=== PATIENT | female | born 1955 | race Caucasian/White ===

== ENCOUNTER 2017-05-25 09:28 | Emergency (ER) | payer OTHER ==
--- NOTE | 2017-05-25 11:47 | ED CLINICAL REPORT ---
Clinical Report - Physicians/Mid Levels [facility] [address] [place] [address] 05/25/2017 9:31 Patient: MAHAMED VALDIVIA Time Seen: 0947. Arrived- By private vehicle. Historian- patient. HISTORY OF PRESENT ILLNESS Chief Complaint: Injury to CHEST. Location of injuries- (right chest). The injury occurred 3 days ago. Fell out of bed. Occurred at home. (fell). The patient complains of moderate pain. No neck pain, loss of consciousness or seizure. Not dazed. does not completely recall event. reports headache after the fall. REVIEW OF SYSTEMS No numbness, weakness, hearing loss, depression or difficulty breathing. No nausea, bladder dysfunction or laceration. All systems otherwise negative, except as recorded above. PAST HISTORY See nurses notes. Tetanus immunization status is up-to-date. Medications: Furosemide Oral. Potassium Chloride ER Oral. Ventolin HFA Inhalation. ClonazePAM Oral. Metoprolol Succinate ER Oral. DULoxetine HCl Oral. Atorvastatin Calcium Oral. Dicyclomine HCl Intramuscular. Cyclobenzaprine HCl ER Oral. Pantoprazole Sodium Oral. Hydrochlorothiazide Oral. Ranitidine Acid Electric Meter Repairer Helper Oral. Combivent Respimat Inhalation. Flovent Diskus Inhalation. Zolpidem Tartrate Oral. Gabapentin Oral. Allergies: Codeine. Demerol. Soma. (deep sedation) Tramadol. SOCIAL HISTORY Former smoker. No alcohol use or drug use. No recent travel. Is a local resident. ADDITIONAL NOTES The nursing notes have been reviewed. PHYSICAL EXAM Vital Signs: 05/25/2017 09:37 BP: 112/93. HR: 86. RR: 18. O2 saturation: 94%. Temp: 98.1 F. Oxygen saturation normal. Appearance: Alert. Oriented X3. No acute distress. Head: Head non-tender. No swelling of head. No Gray's sign or raccoon eyes. Eyes: Pupils equal, round and reactive to light. Pupillary exam: Right pupil 3mm, round and reactive to light directly and consensually and with accommodation. Left pupil: 3mm, round and reactive to light directly and consensually and with accommodation. EOM intact. Neck: No decreased ROM or muscle spasm in the neck. No pain with movement of head/neck. Painless ROM. Non-tender. No vertebral tenderness. CVS: Heart sounds normal. Pulses normal. Respiratory: Breath sounds normal. (right lateral chest wall tenderness. no overlying skin changes. no crepitus. skin intact.). Abdomen: No visible injury. Soft and nontender. Bowel sounds normal. Back: No tenderness. ROM normal. Skin: Skin intact. Skin warm and dry. Normal skin color. Normal skin turgor. Extremities: Normal inspection. Pelvis stable. Extremities atraumatic. No lower extremity edema. Neuro: [place] Coma Scale: 15- eyes open spontaneously (4); best verbal response- oriented x 3 (5); best motor response- obeys commands (6). Oriented X 3. No motor deficit. LABS, X-RAYS, AND EKG Sternum / Ribs X-rays: (rib fractures of the sixth and seventh ribs. No other acute osseous have a maladies. No pneumothorax.). Technique: good. The X-rays were independently viewed by me and interpreted contemporaneously by me. PROGRESS AND PROCEDURES Course of Care: The patient is a pleasant 61-year-old female with no pertinent past medical history presenting for a fashion of right-sided rib pain. Patient's pain had occurred after falling. Patient is also having some amnesia in regards to the particulars of the event. Because of this, the patient was ordered a head CT scan as well as chest x-ray. After having a discussion with the patient in regards to the indication for the CT scan of the head, the patient had informed the interventional radiology tech that she had changed her mind and declined the scan. Patient is aware of the risks and benefits of declining the scan. Patient is agreeable to the treatment and plan. Do not feel I can force the patient to undergo invasive diagnostic testing. Patient states that she has had a broken rib on the left and feels similar today. Patient is otherwise agreeable to the treatment and plan. Workup shows fractures of the patient's ribs. No signs of pneumothorax. No other injury pattern noted on patient's examination or on diagnostic testing. Patient continues to be alert and oriented. Patient is in no acute distress on repeat examination. discussed with the patient her workup here in the emergency department including diagnosis, home care, follow-up, and return precautions. All questions have been answered. The patient expressed understanding of these instructions and was agreeable to them. Disposition: Discharged. Condition: good. CLINICAL IMPRESSION 05/25/2017 09:37 BP: 112/93. HR: 86. RR: 18. O2 saturation: 94%. Temp: 98.1 F. Oxygen saturation normal. Multiple right rib fractures (closed acute). INSTRUCTIONS Warnings: GENERAL WARNINGS: Return or contact your physician immediately if your condition worsens or changes unexpectedly, if not improving as expected, or if other problems arise. SPECIFICALLY, return if you develop weakness, numbness, tingling, pain or incontinence. difficulty breathing. Your Current Medications: CONTINUE TAKING THE FOLLOWING MEDICATIONS: Atorvastatin Calcium Oral. ClonazePAM Oral. Combivent Respimat Inhalation. Cyclobenzaprine HCl ER Oral. Dicyclomine HCl Intramuscular. DULoxetine HCl Oral. Flovent Diskus Inhalation. Furosemide Oral. Gabapentin Oral. Hydrochlorothiazide Oral. Metoprolol Succinate ER Oral. Pantoprazole Sodium Oral. Potassium Chloride ER Oral. Ranitidine Acid Electric Meter Repairer Helper Oral. Ventolin HFA Inhalation. Zolpidem Tartrate Oral. Prescription Medications: Percocet 5 mg/325 mg: take 1 tablet orally every 6 hours as needed for pain. Dispense twenty-five (25). No refill. Substitution is permissible. Follow-up: Return to the emergency department as needed. Follow up with your doctor in three days. Reason for referral: recheck today's concerns. Summary of care provided to patient via paper. Screening today revealed the patient's blood pressure to be in the normal range. The patient should follow up with a primary care provider for blood pressure management. Understanding of the discharge instructions verbalized by patient. (Electronically signed by Jose Giles Dr. 05/25/2017 12:14)
--- NOTE | 2017-05-25 11:47 | ED NURSING NOTES ---
Clinical Report - Nurses [facility] [address] [place] [address] 05/25/2017 9:31 Patient: MAHAMED VALDIVIA TRIAGE Triage time 09:38 May 25 2017. Acuity: LEVEL 3. Chief Complaint: FALL OUT OF BED while attempting to get up, onto a wood surface and landed on their back. CRISTHIAN COMA SCORE: Cristh[place] Coma Scale: 15- eyes open spontaneously (4); best verbal response- oriented x 4 (5); best motor response- obeys commands (6). --09:52 Zia Anderson R.N. 09:37 05/25/17. BP: 112/93. HR: 86. RR: 18. O2 saturation: 94%. Temp: 98.1 F. Pain level now 8/10. --09:52 Zia Anderson R.N. Weight: 53.5 kg stated. Height/Length: 62 inches Per Patient. BMI: 21.6. --09:40 Zia Anderson R.N. Medications Gabapentin Oral. --09:42 Zia Anderson R.N. Zolpidem Tartrate Oral. --09:43 Zia Anderson R.N. Flovent Diskus Inhalation. --09:43 Zia Anderson R.N. Combivent Respimat Inhalation. --09:43 Zia Anderson R.N. Ranitidine Acid Technical Publications Writer Oral. --09:43 Zia Anderson R.N. Hydrochlorothiazide Oral. --09:44 Zia Anderson R.N. Pantoprazole Sodium Oral. --09:44 Zia Anderson R.N. Cyclobenzaprine HCl ER Oral. --09:44 Zia Anderson R.N. Dicyclomine HCl Intramuscular. --09:45 Zia Anderson R.N. Atorvastatin Calcium Oral. --09:45 Zia Anderson R.N. DULoxetine HCl Oral. --09:45 Zia Anderson R.N. Metoprolol Succinate ER Oral. --09:46 Zia Anderson R.N. ClonazePAM Oral. --09:46 Zia Anderson R.N. Ventolin HFA Inhalation. --09:46 Zia Anderson R.N. Potassium Chloride ER Oral. --09:46 Zia Anderson R.N. Furosemide Oral. --09:46 Zia Anderson R.N. Allergies Demerol. Soma. (deep sedation) --09:41 Zia Anderson R.N. Codeine. --09:42 Zia Anderson R.N. Tramadol. --09:42 Zia Anderson R.N. History Arrived by private vehicle. Historian: patient. Accompanied by friend. This occurred (3 days ago). Occurred at home. ( Right rib pain). ( Right side rib pain and severe headache.). Treatment FELTER TENNIS BALLS: None. Trauma activation: Pre-hospital notification of patient arrival was not received. PAST MEDICAL HX: Tetanus status: up-to-date. Immunizations: up-to-date. The patient is post-menopausal. SOCIAL HX: Former smoker, end date 2012. No alcohol use or drug use. SELF HARM ASSESSMENT: A self harm assessment was performed. The patient answered "no" to the question "Have you recently felt down, depressed, or hopeless?" and "Do you have thoughts of harming or killing yourself?". FALL RISK ASSESSMENT: Fall risk assessment completed. No fall risk identified. NUTRITIONAL RISK ASSESSMENT: The nutritional risk assessment revealed no deficiencies. FUNCTIONAL ASSESSMENT: Functional assessment: no impairments noted. LEARNING NEEDS ASSESSMENT: The learning needs assessment revealed no barriers. ABUSE ASSESSMENT: Abuse assessment: (yes) The patient was asked "Do you feel safe in your home?". SKIN INTEGRITY ASSESSMENT: Skin integrity risk assessment completed. No skin integrity risk identified. --09:52 Zia Anderson R.N. PROBLEMS: UTI - Urinary Tract Infection. Atrial Fibrillation. Gastroesophageal Reflux Disease. Lifestyle / Substance Problems. COPD - Chronic Obstructive Pulmonary Disease. Immunizations. Lupus. Fibromyalgia. Fall. Headache. Back Pain. Hypertension. Tetanus Status. LNMP - Last Normal Menstrual Period. --09:47 Zia Anderson R.N. ADDITIONAL SURGERIES: Fracture Repair. Shoulder Surgery. Tubal Ligation. --09:47 Zia Anderson R.N. Interventions ID band on patient. --09:52 Zia Anderson R.N. PHYSICAL ASSESSMENT Ambulatory to room. GENERAL / NEURO / PSYCH: Alert. Oriented X 4. Appears in pain. HEENT: Pupils equal, round and reactive to light. Head non-tender. ( Headache). RESPIRATORY: Respirations not labored. Chest nontender. Breath sounds within normal limits. CVS: Normal heart rate and rhythm. Pulses within normal limits. Capillary refill less than 2 seconds. GI / : Abdomen soft and nontender. EXTREMITIES: ( Right rib pain). SKIN: Skin intact. Skin is warm. --09:53 Zia Anderson R.N. NURSING PROGRESS NOTES The initial plan of care for this patient includes an assessment with efforts to address patient positioning, appropriate ambient lighting and comfortable environmental temperature; impairment of the musculoskeletal system. Cold pack applied (right ribs). Patient gowned. Reassurance given. Call light placed in reach. Side rails up x 1. Bed placed in lowest position. Brakes of bed on. --09:53 Zia Anderson R.N. 09:58 05/25/2017 Oxycodone-APAP (Oxycodone-Acetaminophen) PO 10/650 mg Tablets 1 tab given. Allergies verified, confirmed 5 rights and sedative warning given to the patient. --09:58 Zia Anderson R.N. DISPOSITION / DISCHARGE Departure time: 12:00 May 25 2017. Condition at departure: improved and stable. No learning barriers present. Discharge instructions provided and reviewed with the patient. Reviewed medication(s) side effects, precautions and dosing information. Prescription(s) given to the patient. Patient verbalized understanding. Written instructions provided in Monegasque. The patient was discharged by the physician. She was discharged home. She left the Emergency Department ambulatory and via private vehicle. --16:12 Leah Gallardo R.N. 16:09 05/25/17. BP: 134/85. HR: 77. RR: 18. O2 saturation: 95% on room air. Temp: 98.1 F (oral). --16:12 Leah Gallardo R.N. Locked/Released at 05/25/2017 16:13 by Leah Gallardo R.N.
--- NOTE | 2017-05-25 11:47 | ED ORDER SUMMARY ---
..... Patient: MAHAMED VALDIVIA OrderSheet [facility] VisitID: [id number] [address] [place] [address] 61y, F Registration Date/Time: 05/25/2017 ORDER SHEET Weight: 53.5 kg (stated) Allergies: Demerol, Soma, Codeine, Tramadol GENERAL ORDERS: Ice (09:52 05/25/2017 Afshin Martin) (9:56 LWhalen R.N.) CT Head wo Cont Urgent (10:07 05/25/2017 Afshin Martin) (Ack 10:09 KHoerner) (11:00 KHoerner) (Cancelled: patient [id number] Afshin Martin) Ribs Unilat w PA Chest Right Urgent (10:55 05/25/2017 Afshin Martin) (Ack 10:57 KHoerner) (11:00 KHoerner) MEDICATION ORDERS: Oxycodone-APAP PO 5/325 mg (HIGH ALERT MEDICATION, NOW) (09:52 05/25/2017 Afshin Martin) (9:58 LWhalen R.N.) okay per history and direct questioning IV FLUIDS: ORDER SHEET NOTES: [Electronically signed by Jose Giles Dr. (12:14 05/25/2017)] [Electronically signed by Leah Gallardo R.N. (16:13 05/25/2017)] [Electronically locked/signed by Leah Gallardo R.N. (16:13 05/25/2017)]
--- NOTE | 2017-05-25 11:47 | ED ORDER SUMMARY ---
..... Patient: MAHAMED VALDIVIA OrderSheet [facility] VisitID: [id number] [address] [place] [address] 61y, F Registration Date/Time: 05/25/2017 ORDER SHEET Weight: 53.5 kg (stated) Allergies: Demerol, Soma, Codeine, Tramadol GENERAL ORDERS: Ice (09:52 05/25/2017 Afshin Martin) (9:56 LWhalen R.N.) CT Head wo Cont Urgent (10:07 05/25/2017 Afshin Martin) (Ack 10:09 KHoerner) (11:00 KHoerner) (Cancelled: patient [id number] Afshin Martin) Ribs Unilat w PA Chest Right Urgent (10:55 05/25/2017 Afshin Martin) (Ack 10:57 KHoerner) (11:00 KHoerner) MEDICATION ORDERS: Oxycodone-APAP PO 5/325 mg (HIGH ALERT MEDICATION, NOW) (09:52 05/25/2017 Afshin Martin) (9:58 LWhalen R.N.) okay per history and direct questioning IV FLUIDS: ORDER SHEET NOTES: [Electronically signed by Jose Giles Dr. (12:14 05/25/2017)] [Electronically signed by Leah Gallardo R.N. (16:13 05/25/2017)] [Electronically locked/signed by Leah Gallardo R.N. (16:13 05/25/2017)]
--- NOTE | 2017-05-25 12:54 | DIAGNOSTIC IMAGING REPORT ---
PROCEDURE: XR RIBS UNILAT W/PA CHEST-RT INDICATION: TRAUMA/INJURY TECHNIQUE: Two views of the right ribs with single PA view chest. COMPARISON: None. FINDINGS: RIGHT RIBS: Nondisplaced right six lateral rib fracture and mildly displaced right lateral seventh rib fracture. No suspicious rib lesions. CHEST: Normal heart size and central vessels. Pleural thickening laterally in the right lung. No pneumothorax. Plate-like atelectatic changes left lateral lung. Surgical clips in the gallbladder fossa. Left shoulder replacement. IMPRESSION: 1. Right sixth and seventh rib fractures. 2. Right lateral pleural thickening and probable small right effusion. No right pneumothorax. 2. Left atelectasis. 3. Prior left shoulder replacement.
--- NOTE | 2017-05-25 16:13 | ED MAR SUMMARY ---
..... Medication Administration Record [facility] [address] [place] [address] Patient: MAHAMED VALDIVIA Visit ID: [id number] 61y, F Weight: 53.5 kg Height/Length: 62 in BMI: 21.6 ALLERGIES: Tramadol, Codeine, Demerol, Soma Given 09:58 05/25/2017 Zia Anderson R.N. Medication Administered: OXYCODONE-APAP [PO] (OXYCODONE-ACETAMINOPHEN), Dose: 1 tab 10/650 mg Tablets PO. Medication Ordered: Oxycodone-APAP PO 5/325 mg (HIGH ALERT MEDICATION, NOW).
--- NOTE | 2017-05-25 16:13 | ED MED RECONCILIATION SUMMARY ---
Patient: MAHAMED VALDIVIA Medication Reconciliation Report [facility] VisitID: [id number] [place] [address] 61y, F Registration Date/Time: 05/25/2017 Weight: 53.5 kg Height/Length: 62 in. BMI: 21.6 ALLERGIES: Codeine, Demerol, Soma, Tramadol The patient's Home Medications are listed below: CONTINUE TAKING THE FOLLOWING MEDICATIONS: Atorvastatin Calcium Oral ClonazePAM Oral Combivent Respimat Inhalation Cyclobenzaprine HCl ER Oral Dicyclomine HCl Intramuscular DULoxetine HCl Oral Flovent Diskus Inhalation Furosemide Oral Gabapentin Oral Hydrochlorothiazide Oral Metoprolol Succinate ER Oral Pantoprazole Sodium Oral Potassium Chloride ER Oral Ranitidine Acid Head Of Acquisitions Oral Ventolin HFA Inhalation Zolpidem Tartrate Oral The source(s) of the original Home Medication information: Not obtained. The following Medications were given to the patient in the Emergency Department: Oxycodone-APAP [PO] PO 1 tab, administered: 05/25/2017 9:58:00 AM The following Medications were prescribed to the patient: Percocet 5 mg/325 mg: take 1 tablet orally every 6 hours as needed for pain. Dispense twenty-five (25). No refill. Substitution is permissible. -- Jose Giles Dr.
--- NOTE | 2017-05-25 16:13 | ED MED RECONCILIATION SUMMARY ---
Patient: MAHAMED VALDIVIA Medication Reconciliation Report [facility] VisitID: [id number] [place] [address] 61y, F Registration Date/Time: 05/25/2017 Weight: 53.5 kg Height/Length: 62 in. BMI: 21.6 ALLERGIES: Codeine, Demerol, Soma, Tramadol The patient's Home Medications are listed below: CONTINUE TAKING THE FOLLOWING MEDICATIONS: Atorvastatin Calcium Oral ClonazePAM Oral Combivent Respimat Inhalation Cyclobenzaprine HCl ER Oral Dicyclomine HCl Intramuscular DULoxetine HCl Oral Flovent Diskus Inhalation Furosemide Oral Gabapentin Oral Hydrochlorothiazide Oral Metoprolol Succinate ER Oral Pantoprazole Sodium Oral Potassium Chloride ER Oral Ranitidine Acid Strategic Partnership Representative Oral Ventolin HFA Inhalation Zolpidem Tartrate Oral The source(s) of the original Home Medication information: Not obtained. The following Medications were given to the patient in the Emergency Department: Oxycodone-APAP [PO] PO 1 tab, administered: 05/25/2017 9:58:00 AM The following Medications were prescribed to the patient: Percocet 5 mg/325 mg: take 1 tablet orally every 6 hours as needed for pain. Dispense twenty-five (25). No refill. Substitution is permissible. -- Jose Giles Dr.
--- NOTE | 2017-05-25 16:13 | ED DISCHARGE INSTRUCTIONS ---
Patient: MAHAMED VALDIVIA General Instructions [facility] VisitID: [id number] [place] [address] 61y, F Registration Date/Time: 05/25/2017 05/25/2017 09:37 BP: 112/93. HR: 86. RR: 18. O2 saturation: 94%. Temp: 98.1 F. Oxygen saturation normal. Multiple right rib fractures (closed acute). INSTRUCTIONS Warnings: GENERAL WARNINGS: Return or contact your physician immediately if your condition worsens or changes unexpectedly, if not improving as expected, or if other problems arise. SPECIFICALLY, return if you develop weakness, numbness, tingling, pain or incontinence. difficulty breathing. Your Current Medications: CONTINUE TAKING THE FOLLOWING MEDICATIONS: Atorvastatin Calcium Oral. ClonazePAM Oral. Combivent Respimat Inhalation. Cyclobenzaprine HCl ER Oral. Dicyclomine HCl Intramuscular. DULoxetine HCl Oral. Flovent Diskus Inhalation. Furosemide Oral. Gabapentin Oral. Hydrochlorothiazide Oral. Metoprolol Succinate ER Oral. Pantoprazole Sodium Oral. Potassium Chloride ER Oral. Ranitidine Acid Civilian Technician Oral. Ventolin HFA Inhalation. Zolpidem Tartrate Oral. Prescription Medications: Percocet 5 mg/325 mg: take 1 tablet orally every 6 hours as needed for pain. Dispense twenty-five (25). No refill. Substitution is permissible. Follow-up: Return to the emergency department as needed. Follow up with your doctor in three days. Reason for referral: recheck today's concerns. Summary of care provided to patient via paper. Screening today revealed the patient's blood pressure to be in the normal range. The patient should follow up with a primary care provider for blood pressure management. Understanding of the discharge instructions verbalized by patient. ADDITIONAL INFORMATION Rib Fracture You have a fracture (break) of one or more ribs. Rib fractures do not require a cast like other bones. They will heal by themselves in about 4-6 weeks. The first 3-4 weeks will be the most painful because deep breathing, coughing or changing position from sitting to lying down, may cause the broken ends to move slightly. Home Care: Rest. You should not be doing any heavy lifting or strenuous exertion until the pain goes away. Because it hurts to breathe when you have a broken rib, there is risk of getting pneumonia from poor airflow through your lungs. To prevent this: Take four very deep breaths at least four times a day (exhale through pursed lips as if you are blowing up a balloon). If an "incentive spirometer" (breathing exercise device) was given to you, use it at least four times a day, or as directed. Apply an ice pack (ice cubes in a plastic bag, wrapped in a towel) over the injured area for 20 minutes every 1-2 hours the first day. Continue with ice packs 3-4 times a day for the next two days, then as needed for the relief of pain and swelling. You may use acetaminophen (Tylenol) or ibuprofen (Motrin, Advil) to control pain, unless another pain medicine was prescribed. [NOTE: If you have chronic liver or kidney disease or ever had a stomach ulcer or GI bleeding, talk with your doctor before using these medicines.] If your pain is not controlled by the treatment given, contact your doctor. Sometimes a stronger pain medicine may be needed. A nerve block (numbing the nerve between the ribs) can be performed in case of severe pain. Follow Up with your doctor during the next week, or as advised. Rarely, a broken rib will cause complications within the first few days that may not be evident during your initial exam (such as, collapsed lung, bleeding around the lung or into the abdomen, or pneumonia). Therefore, watch for the signs below. [NOTE: If x-rays were taken, they will be reviewed by a radiologist. You will be notified of any new findings that may affect your care.] Get Prompt Medical Attention if any of the following occur: Shortness of breath Increasing chest pain with breathing Dizziness, weakness or fainting New or worsening abdominal pain Fever of 100.4F (38C) or higher, or as directed by your healthcare provider Congested cough Oxycodone Hydrochloride, Acetaminophen Oral tablet What is this medicine? ACETAMINOPHEN; OXYCODONE (a set a KAN mariel fen; ox i KOE done) is a pain reliever. It is used to treat mild to moderate pain. How should I use this medicine? Take this medicine by mouth with a full glass of water. Follow the directions on the prescription label. Take your medicine at regular intervals. Do not take your medicine more often than directed. Talk to your catapult and arresting gear officer regarding the use of this medicine in children. Special care may be needed. Patients over 65 years old may have a stronger reaction and need a smaller dose. What side effects may I notice from receiving this medicine? Side effects that you should report to your doctor or health small animal caretaker as soon as possible: allergic reactions like skin rash, itching or hives, swelling of the face, lips, or tongue breathing difficulties, wheezing confusion light headedness or fainting spells severe stomach pain yellowing of the skin or the whites of the eyes Side effects that usually do not require medical attention (report to your doctor or health small animal caretaker if they continue or are bothersome): dizziness drowsiness nausea vomiting What may interact with this medicine? alcohol antihistamines barbiturates like amobarbital, butalbital, butabarbital, methohexital, pentobarbital, phenobarbital, thiopental, and secobarbital benztropine drugs for bladder problems like solifenacin, trospium, oxybutynin, tolterodine, hyoscyamine, and methscopolamine drugs for breathing problems like ipratropium and tiotropium drugs for certain stomach or intestine problems like propantheline, homatropine methylbromide, glycopyrrolate, atropine, belladonna, and dicyclomine general anesthetics like etomidate, ketamine, nitrous oxide, propofol, desflurane, enflurane, halothane, isoflurane, and sevoflurane medicines for depression, anxiety, or psychotic disturbances medicines for sleep muscle relaxants naltrexone narcotic medicines (opiates) for pain phenothiazines like perphenazine, thioridazine, chlorpromazine, mesoridazine, fluphenazine, prochlorperazine, promazine, and trifluoperazine scopolamine tramadol trihexyphenidyl What if I miss a dose? If you miss a dose, take it as soon as you can. If it is almost time for your next dose, take only that dose. Do not take double or extra doses. Where should I keep my medicine? Keep out of the reach of children. This medicine can be abused. Keep your medicine in a safe place to protect it from theft. Do not share this medicine with anyone. Selling or giving away this medicine is dangerous and against the law. Store at room temperature between 20 and 25 degrees C (68 and 77 degrees F). Keep container tightly closed. Protect from light. This medicine may cause accidental overdose and if it is taken by other adults, children, or pets. Flush any unused medicine down the toilet to reduce the chance of harm. Do not use the medicine after the expiration date. What should I tell my health care provider before I take this medicine? They need to know if you have any of these conditions: brain tumor Crohn's disease, inflammatory bowel disease, or ulcerative colitis drink more than 3 alcohol containing drinks per day drug abuse or addiction head injury heart or circulation problems kidney disease or problems going to the bathroom liver disease lung disease, asthma, or breathing problems an unusual or allergic reaction to acetaminophen, oxycodone, other opioid analgesics, other medicines, foods, dyes, or preservatives or trying to get breast-feeding What should I watch for while using this medicine? Tell your doctor or health small animal caretaker if your pain does not go away, if it gets worse, or if you have new or a different type of pain. You may develop tolerance to the medicine. Tolerance means that you will need a higher dose of the medication for pain relief. Tolerance is normal and is expected if you take this medicine for a long time. Do not suddenly stop taking your medicine because you may develop a severe reaction. Your body becomes used to the medicine. This does NOT mean you are addicted. Addiction is a behavior related to getting and using a drug for a non-medical reason. If you have pain, you have a medical reason to take pain medicine. Your doctor will tell you how much medicine to take. If your doctor wants you to stop the medicine, the dose will be slowly lowered over time to avoid any side effects. You may get drowsy or dizzy. Do not drive, use machinery, or do anything that needs mental alertness until you know how this medicine affects you. Do not stand or sit up quickly, especially if you are an older patient. This reduces the risk of dizzy or fainting spells. Alcohol may interfere with the effect of this medicine. Avoid alcoholic drinks. There are different types of narcotic medicines (opiates) for pain. If you take more than one type at the same time, you may have more side effects. Give your health care provider a list of all medicines you use. Your doctor will tell you how much medicine to take. Do not take more medicine than directed. Call emergency for help if you have problems breathing. The medicine will cause constipation. Try to have a bowel movement at least every 2 to 3 days. If you do not have a bowel movement for 3 days, call your doctor or health small animal caretaker. Do not take Tylenol (acetaminophen) or medicines that have acetaminophen with this medicine. Too much acetaminophen can be very dangerous. Many nonprescription medicines contain acetaminophen. Always read the labels carefully to avoid taking more acetaminophen. You have been given the following additional information: Fracture, Rib Oxycodone Hydrochloride, Acetaminophen Oral tablet (Electronically signed by Jose Giles Dr. 05/25/2017 12:14)
--- NOTE | 2017-05-25 16:13 | ED MAR SUMMARY ---
..... Medication Administration Record [facility] [address] [place] [address] Patient: MAHAMED VALDIVIA Visit ID: [id number] 61y, F Weight: 53.5 kg Height/Length: 62 in BMI: 21.6 ALLERGIES: Tramadol, Codeine, Demerol, Soma Given 09:58 05/25/2017 Zia Anderson R.N. Medication Administered: OXYCODONE-APAP [PO] (OXYCODONE-ACETAMINOPHEN), Dose: 1 tab 10/650 mg Tablets PO. Medication Ordered: Oxycodone-APAP PO 5/325 mg (HIGH ALERT MEDICATION, NOW).
== END 2017-05-25 12:00 | disposition home or self-care (01) ==
LOC: ED SRH 09:28
DX: S22.41XA Multiple fractures of ribs, right side, initial encounter for closed fracture (principal); W06.XXXA Fall from bed, initial encounter; Y92.019 Unspecified place in single-family (private) house as the place of occurrence of the external cause; I48.91 Unspecified atrial fibrillation; K21.9 Gastro-esophageal reflux disease without esophagitis; I10 Essential (primary) hypertension; Z79.899 Other long term (current) drug therapy